=== PATIENT | male | born 1980 ===

== ENCOUNTER 2017-02-12 11:37 | Emergency (ER) | payer SELFPAY ==
[~2017-02-12] VITALS: Ht 175.3 cm; Wt 95.5 kg
[2017-02-12 11:40] VITALS: Ht 175.3 cm; Wt 95.5 kg
[2017-02-12] MEDS ORDERED: ONDANSETRON (ODT) 4 MG TAB ODT STA (11:48)
[2017-02-12] MEDS ORDERED: IBUP-1542 PO (11:50)
[2017-02-12] MEDS ORDERED: ONDA4TAB14 PO (11:51)
--- NOTE | 2017-02-12 11:54 | ERD ---
ER Documentation Chief Complaint Date/Time DATE: 02/12/17 TIME: 11:51 Chief Complaint TOOK EDIBLE MJ AND FEELS "WEIRD" VSS HPI 36-year-old male presents stating that yesterday him and his friends bought a marijuana edible from a dispensary and he ate it and today continues to feel nauseous and dizzy. No vomiting. No diarrhea. He has not taken any medication for this. No pain. ROS All systems reviewed and are negative except as per history of present illness. Medications Home Meds Active Scripts Ondansetron (Ondansetron Odt) 4 Mg Tab.rapdis, 4 MG PO Q6H Y for NAUSEA AND/OR VOMITING, #15 TAB Prov:CROW CALDWELL PA-C 02/12/17 Ibuprofen* (Motrin*) 600 Mg Tab, 600 MG PO Q6, #30 TAB Prov:CROW CALDWELL PA-C 02/12/17 Allergies Allergies: Coded Allergies: No Known Allergy (Unverified , 02/12/17) PMhx/Soc Medical and Surgical Hx: pt denies Medical Hx, pt denies Surgical Hx History of Surgery: No Anesthesia Reaction: No Hx Neurological Disorder: No Hx Respiratory Disorders: No Hx Cardiac Disorders: No Hx Psychiatric Problems: No Hx Miscellaneous Medical Probl: No Hx Alcohol Use: Yes Hx Substance Use: Yes Hx Tobacco Use: No Smoking Status: Never smoker FmHx Family History: No diabetes Physical Exam Vitals Vital Signs Date Time Temp Pulse Resp B/P Pulse Ox O2 Delivery O2 Flow Rate FiO2 02/12/17 11:40 98.5 69 18 142/73 100 Physical Exam INITIAL VITAL SIGNS: Reviewed by me GENERAL: Awake, alert and oriented x 4, well appearing, nontoxic, speaking in full sentences. No acute distress HEAD: Atraumatic NECK: Supple. No masses. Full range of motion. No meningismus. No midline tenderness. EYES: EOMI. PERRL. RESPIRATORY: Clear to auscultation bilaterally. Symmetric chest wall rise. No wheezing or rales. No accessory muscle use. CV: Regular rate and rhythm. No murmurs, rubs, or gallops. ABDOMEN: Soft, non-distended. Nontender. Negative [place]. Negative [place] point tenderness. No CVA tenderness bilaterally. No guarding. No rebound. Results 24 hrs Current Medications Medications (Trade) Dose Ordered Sig/Michelle Route PRN Reason Start Time Stop Time Status Last Admin Dose Admin Ondansetron HCl (Zofran Odt) 4 mg ONCE STAT ODT 02/12/17 11:48 02/12/17 11:49 DC Ibuprofen (Motrin) 600 mg ONCE ONCE PO 02/12/17 12:00 02/12/17 12:01 Procedures/MDM Patient has nausea and dizziness after eating marijuana chocolate yesterday. His vital signs are stable and his exam is normal he is well-appearing in no distress. He was given Zofran and Motrin here and discharged with ibuprofen and Zofran. Patient counseled regarding my diagnostic impression and care plan. Prior to discharge all questions answered. Pt agrees with treatment plan and understands strict return precautions. Pt is instructed to follow up with primary care provider within 24-48 hours. Precautionary instructions provided including instructions to return to the ER if not improving or for any worsening or changing symptoms or concerns. Departure Diagnosis: Primary Impression: Marijuana use Condition: Stable Patient Instructions: Marijuana Abuse Additional Instructions: Call your primary care doctor TOMORROW for an appointment during the next 1-2 days.See the doctor sooner or return here if your condition worsens before your appointment time. CROW CALDWELL PA-C Feb 12, 2017 11:54
[2017-02-12] MEDS ORDERED: IBUPROFEN 600 MG TAB PO ONE (12:00)
[2017-02-12] MEDS ORDERED: LORAZEPAM 1 MG TAB PO ONE (12:30)
[2017-02-12 13:14] VITALS: BP 123/78; PULSE 85; RESP 17
== END 2017-02-12 13:28 | disposition home or self-care (01) ==
LOC: FTE 11:37
DX: F12.90 Cannabis use, unspecified, uncomplicated (principal); R11.0 Nausea
CPT/HCPCS: 99283